=== PATIENT | female | born 2000 | race Caucasian/White ===

== ENCOUNTER 2020-03-23 21:13 | Emergency (ER) | payer SELFPAY ==
[~2020-03-23] VITALS: Ht 160 cm; Wt 55.0 kg
[2020-03-23 22:22] VITALS: BP 113/73
[2020-03-23 22:50] LABS: CLARITY URINE CLEAR (CLEAR); COLOR URINE YELLOW (YELLOW); KETONES URINE NEGATIVE (NEGATIVE); LEUKOCYTE ESTERASE URINE TRACE (NEGATIVE); NITRITE URINE NEGATIVE (NEGATIVE); OCCULT BLOOD URINE NEGATIVE (NEGATIVE); PH URINE 8.5 (4.5-8.0); PROTEIN URINE NEGATIVE (NEGATIVE); SPECIFIC GRAVITY URINE 1.013 (1.005-1.030)
[2020-03-23] MEDS: CEFTRIAXONE SODIUM 500 MG/VIAL IM ONE (23:21)
[2020-03-23] MEDS: AZITHROMYCIN 500 MG TABLET PO ONE (23:21)
[2020-03-23] MEDS: LIDOCAINE HCL 1% 20ML VIAL (Pyxis) INJ INFIL ONE (23:21)
== END 2020-03-23 23:35 | disposition home or self-care (01) ==
LOC: ER 21:13
DX: N76.0 Acute vaginitis (principal); B96.20 Unspecified Escherichia coli [E. coli] as the cause of diseases classified elsewhere; Z20.2 Contact with and (suspected) exposure to infections with a predominantly sexual mode of transmission; Z72.51 High risk heterosexual behavior
CPT/HCPCS: 81003; 81025; 87077; 87086; 87186; 96372; 99283; J0696; J3490